=== PATIENT | female | born 2000 | race Caucasian/White ===

== ENCOUNTER 2021-03-01 11:23 | Emergency (ER) | payer OTHER ==
[~2021-03-01] VITALS: Ht 167.6 cm; Wt 56.7 kg
[2021-03-01 12:46] LABS: BASOPHIL 0.6 % (0-2); EOSINOPHIL 1.4 % (0-5); HGB 13.4 g/dl (12.5-16.0); LYMPHOCYTE 17.6 % (15-48); MCH 30.4 pg (25.0-31.0); MCHC 33.5 g/dL (32.0-36.0); MCV 90.7 fL (78.0-100.0); MONOCYTE 6.6 % (0-12); MPV 10.2 fL (6.0-9.5); NEUTROPHIL 73.6 % (41-80); NRBC 0; PLT 186 K/uL (150-400); RBC 4.41 M/uL (4.20-5.40); RDW 12.1 % (11.5-14.0); WBC 8.8 K/uL (4.0-10.5)
[2021-03-01 13:03] LABS: ALBUMIN 4.1 g/dL (3.4-5.0); BILIRUBIN - TOTAL 0.3 mg/dL (0.2-1.0); BUN/CREAT RATIO (CALC) 18.4 RATIO; CREATININE 0.76 mg/dL (0.51-0.95); TOTAL PROTEIN 7.1 g/dL (6.4-8.2)
[2021-03-01 13:37] LABS: BILIRUBIN NEGATIVE (NEGATIVE); BLOOD NEGATIVE Ery/uL (NEGATIVE); CLARITY CLEAR (CLEAR); COLOR YELLOW (YELLOW); GLUCOSE (U) NORMAL (NORMAL); LEUKOCYTES TRACE Leu/uL (NEGATIVE); NITRITE NEGATIVE (NEGATIVE); PROTEIN 2+ mg/dL (NEGATIVE); SPECIFIC GRAVITY 1.015 (1.001-1.030)
[2021-03-01 13:41] LABS: AMPHETAMINES NEGATIVE (NEGATIVE); BARBITURATES NEGATIVE (NEGATIVE); ECSTASY (MDMA) NEGATIVE (NEGATIVE); MARIJUANA (THC) NEGATIVE (NEGATIVE); METHADONE NEGATIVE (NEGATIVE); OPIATES NEGATIVE (NEGATIVE); OXYCODONE NEGATIVE (NEGATIVE)
[2021-03-01 13:48] LABS: AMORPHOUS URATES CRYSTALS LARGE; BACTERIA TRACE; MUCOUS MODERATE; SQUAMOUS EPITHELIAL CELLS 20-50
== END 2021-03-01 14:49 | disposition home or self-care (01) ==
LOC: FER 11:23
PROVIDERS: Nurse Practitioner Family
DX: F41.1 Generalized anxiety disorder (principal); R42 Dizziness and giddiness; F10.129 Alcohol abuse with intoxication, unspecified; F17.210 Nicotine dependence, cigarettes, uncomplicated; Y90.0 Blood alcohol level of less than 20 mg/100 ml
CPT/HCPCS: 36415; 80053; 80305; 81001; 82150; 83690; 85025; 87088; 99283; G0480

== ENCOUNTER 2021-05-30 19:17 | Emergency (ER) | payer OTHER ==
[2021-05-30 21:34] LABS: CORONAVIRUS 2019 SARS-COV-2 POSITIVE (NEGATIVE); INFLUENZA A NAA NEGATIVE (NEGATIVE)
[2021-05-30] MEDS ORDERED: VIBRAMYCIN100 MG PO (23:21)
[2021-06-01 21:09] LABS: CHLAMYDIA TRACHOMATIS, NAA Negative (Negative); NEISSERIA GONORRHOEAE, NAA Negative (Negative)
== END 2021-05-30 23:47 | disposition home or self-care (01) ==
LOC: FER 19:17
PROVIDERS: Emergency Medicine Emergency Medical Services; Physician Assistant
DX: U07.1 COVID-19 (principal); F17.210 Nicotine dependence, cigarettes, uncomplicated; Z11.3 Encounter for screening for infections with a predominantly sexual mode of transmission
CPT/HCPCS: 87210; 87491; 87591; 99283; J0696; U0002

== ENCOUNTER 2021-07-31 04:19 | Emergency (ER) | payer OTHER ==
[~2021-07-31 04:19] MED LIST: VIBRAMYCIN100 MG PO
[2021-07-31] MEDS ORDERED: ZOVIRAX800 MG PO (04:48)
== END 2021-07-31 04:54 | disposition home or self-care (01) ==
LOC: FER 04:19
DX: K13.79 Other lesions of oral mucosa (principal); F17.200 Nicotine dependence, unspecified, uncomplicated
CPT/HCPCS: 99282

== ENCOUNTER 2021-09-08 03:21 | Emergency (ER) | payer OTHER ==
[~2021-09-08 03:21] MED LIST changes: +ZOVIRAX800 MG PO
[2021-09-08 04:36] LABS: BILIRUBIN NEGATIVE (NEGATIVE); BLOOD NEGATIVE Ery/uL (NEGATIVE); COLOR YELLOW (YELLOW); GLUCOSE (U) NORMAL (NORMAL); LEUKOCYTES 2+ Leu/uL (NEGATIVE); NITRITE NEGATIVE (NEGATIVE); PROTEIN NEGATIVE (NEGATIVE); UROBILINOGEN 0.2 mg/dL (0.2-1.0)
[2021-09-08 04:37] LABS: CLARITY HAZY (CLEAR)
[2021-09-08 04:47] LABS: AMORPHOUS URATES CRYSTALS TRACE; BACTERIA TRACE
[2021-09-08] MEDS ORDERED: VIBRAMYCIN100 MG PO (05:48)
[2021-09-11 21:10] LABS: CHLAMYDIA TRACHOMATIS, NAA Negative (Negative); NEISSERIA GONORRHOEAE, NAA Positive (Negative)
== END 2021-09-08 06:11 | disposition home or self-care (01) ==
LOC: FER 03:21
PROVIDERS: Internal Medicine
DX: A54.9 Gonococcal infection, unspecified (principal); F17.210 Nicotine dependence, cigarettes, uncomplicated
CPT/HCPCS: 81001; 87491; 87591; J0696; J7040

== ENCOUNTER 2021-10-23 18:50 | Emergency (ER) | payer OTHER | END 2021-10-23 21:33 | disposition home or self-care (01) | LOC: FER 18:50 | DX: O20.0 Threatened abortion (principal) | CPT/HCPCS: 99283 ==

== ENCOUNTER 2021-10-26 23:17 | Emergency (ER) | payer OTHER ==
[2021-10-27 01:21] LABS: NRBC 0
[2021-10-27 01:37] LABS: BUN/CREAT RATIO (CALC) 16.5 RATIO; CREATININE 0.79 mg/dL (0.51-0.95); POTASSIUM 3.3 mmol/L (3.5-5.1)
[2021-10-27 02:44] LABS: WBC 9.3 K/uL (4.0-10.5)
[2021-10-27 02:45] LABS: HCT 35.4 % (37.0-47.0); HGB 11.8 g/dl (12.5-16.0); RBC 3.83 M/uL (4.20-5.40)
[2021-10-27 02:46] LABS: MCH 30.8 pg (25.0-31.0); MCHC 33.3 g/dL (32.0-36.0); MCV 92.4 fL (78.0-100.0); RDW 11.8 % (11.5-14.0)
[2021-10-27 02:47] LABS: MPV 10.5 fL (6.0-9.5); NEUTROPHIL 60.2 % (41-80); PLT 182 K/uL (150-400)
[2021-10-27 02:48] LABS: LYMPHOCYTE 30.5 % (15-48)
[2021-10-27 02:49] LABS: BASOPHIL 0.4 % (0-2); EOSINOPHIL 1.9 % (0-5); MONOCYTE 6.8 % (0-12)
== END 2021-10-27 04:05 | disposition home or self-care (01) ==
LOC: FER 23:17
PROVIDERS: Internal Medicine
DX: O20.0 Threatened abortion (principal); O99.331 Smoking (tobacco) complicating pregnancy, first trimester; F17.210 Nicotine dependence, cigarettes, uncomplicated; Z3A.01 Less than 8 weeks gestation of pregnancy
CPT/HCPCS: 36415; 80048; 84702; 85025; 86900; 86901; 99284